=== PATIENT | female | born 1950 | race Caucasian/White ===

== ENCOUNTER 2016-11-19 18:12 | Emergency (ER) | payer MEDICARE, OTHER ==
[~2016-11-19] VITALS: Ht 154.9 cm; Wt 72.6 kg
[~2016-11-19 18:12] MED LIST: ASPIRIN81 M1 PO; CENTRUM SILVER1 TA1 PO; CO-Q-10 200 MG-1 SGL PO; FISH OIL500 MG PO
[2016-11-19] MEDS ORDERED: NAPROSYN500 MG PO (18:48)
[2016-11-19] MEDS ORDERED: CEFADROXIL500 M1 PO (19:02)
== END 2016-11-19 18:55 | disposition home or self-care (01) ==
LOC: ED 18:12
DX: S61.216A Laceration without foreign body of right little finger without damage to nail, initial encounter (principal); Z79.82 Long term (current) use of aspirin; Z79.899 Other long term (current) drug therapy; W25.XXXA Contact with sharp glass, initial encounter; Y93.89 Activity, other specified; Y92.89 Other specified places as the place of occurrence of the external cause; Y99.8 Other external cause status

== ENCOUNTER → 2017-03-21 | Outpatient (CLI) | payer MEDICARE, OTHER ==
[~2017-03-21] MED LIST changes: +CEFADROXIL500 M1 PO; +NAPROSYN500 MG PO
[2017-03-22 09:06] LABS: CANCER ANTIGEN (CA) 125 002303 9.4 U/mL (0.0-38.1)
== END | disposition home or self-care (01) ==
LOC: LAB 12:26 → MAMMO 13:00 → US 13:00
PROVIDERS: Obstetrics & Gynecology
DX: Z12.31 Encounter for screening mammogram for malignant neoplasm of breast (principal); Z11.59 Encounter for screening for other viral diseases; Z90.710 Acquired absence of both cervix and uterus; Z80.41 Family history of malignant neoplasm of ovary

== ENCOUNTER → 2017-04-28 | Outpatient (CLI) | payer MEDICARE, OTHER ==
[2017-04-28 12:22] LABS: ALBUMIN 4.1 gm/dl (3.1-4.5); ALKALINE PHOSPHATASE 68 U/L (45-117); BUN 17 mg/dl (7-24); CHLORIDE 103 mmol/L (98-107); CREATININE 0.83 mg/dL (0.55-1.02); POTASSIUM 4.5 mmol/L (3.5-5.1); SGOT/AST 24 IU/L (3-35); SGPT/ALT 30 U/L (12-78); SODIUM 139 mmol/L (136-145); TOTAL PROTEIN 7.5 gm/dL (6.4-8.2)
== END | disposition home or self-care (01) ==
LOC: LAB 11:28
PROVIDERS: Physician Assistant
DX: Z79.1 Long term (current) use of non-steroidal anti-inflammatories (NSAID) (principal)

== ENCOUNTER → 2018-03-29 | Outpatient (CLI) | payer MEDICARE, OTHER | END | disposition home or self-care (01) | LOC: LAB 10:18 → MAMMO 10:20 | DX: Z12.31 Encounter for screening mammogram for malignant neoplasm of breast (principal); Z80.41 Family history of malignant neoplasm of ovary; Z90.710 Acquired absence of both cervix and uterus ==

== ENCOUNTER → 2021-03-30 | Outpatient (CLI) | payer MEDICARE, OTHER | END | disposition home or self-care (01) | LOC: US 09:25 | PROVIDERS: ATTEND Obstetrics & Gynecology | DX: Z08 Encounter for follow-up examination after completed treatment for malignant neoplasm (principal); Z90.710 Acquired absence of both cervix and uterus; Z80.41 Family history of malignant neoplasm of ovary ==